=== PATIENT | female | born 1965 | race Caucasian/White ===

== ENCOUNTER 2016-07-25 20:12 | Emergency (ER) | payer SELFPAY ==
--- NOTE | 2016-07-25 20:33 | EDM.PDOC ---
ED HPI GENERAL MEDICAL PROBLEM - General Stated Complaint: ILL X1 MONTH Time Seen by Provider: 07/25/16 20:19 - History of Present Illness INITIAL COMMENTS - FREE TEXT/NARRATIVE: HISTORY AND PHYSICAL: History of present illness: Patient is 50-year-old white female no significant past medical strips of external cold symptoms off and on over the last one month she gets and shortness of breath with this she denies chest pain palpitation diaphoresis she denies tobacco she states she did smoke earlier life but this was an extremely small notches no known lung disease has never used an inhaler prior to no fever chills nausea vomiting or other complaints. Review of systems: As per history of present illness and below otherwise all systems reviewed and negative. Past medical history: As per history of present illness and as reviewed below otherwise noncontributory. Surgical history: As per history of present illness and as reviewed below otherwise noncontributory. Social history: No reported history of drug or alcohol abuse. Family history: As per history of present illness and as reviewed below otherwise noncontributory. Physical exam: HEENT: Atraumatic, normocephalic, pupils reactive, negative for conjunctival pallor or scleral icterus, mucous membranes moist, throat clear, neck supple, nontender, trachea midline. Lungs: Clear to auscultation, breath sounds equal bilaterally, chest nontender. Heart: S1S2, regular, negative for clicks, rubs, or JVD. Abdomen: Soft, nondistended, nontender. Negative for masses or hepatosplenomegaly. Negative for costovertebral tenderness. Pelvis: Stable nontender. Genitourinary: Deferred. Rectal: Deferred. Extremities: Atraumatic, negative for cords or calf pain. Neurovascular unremarkable. Neuro: Awake, alert, oriented. Cranial nerves II through XII unremarkable. Cerebellum unremarkable. Motor and sensory unremarkable throughout. Exam nonfocal. Diagnostics: Chest x-ray influenza screen Therapeutics: None Impression: #1 pneumonitis Definitive disposition and diagnosis as appropriate pending reevaluation and review of above. ED ROS GENERAL - Review of Systems Review Of Systems: ROS reveals no pertinent complaints other than HPI. ED EXAM, GENERAL - Physical Exam Exam: See Below (See dictation) Course - Vital Signs Last Recorded V/S: Last Vital Signs Temp 37.1 C 07/25/16 20:36 Pulse 100 07/25/16 20:36 Resp 16 07/25/16 20:36 BP 178/104 H 07/25/16 20:36 Pulse Ox 99 07/25/16 20:36 - Orders/Labs/Meds Orders: Active Orders 24 hr Category Date Time Status EKG 12 Lead [EKG Documentation Completion] [RC] STAT Care 07/25/16 20:59 Active Chest 2V [CR] Stat Exams 07/25/16 20:32 Taken Labs: Laboratory Tests 07/25/16 07/25/16 07/25/16 Range/Units 21:50 21:50 21:50 WBC 10.33 (4.0-11.0) K/uL RBC 4.50 (4.30-5.90) M/uL Hgb 12.1 (12.0-16.0) g/dL Hct 38.2 (36.0-46.0) % MCV 84.9 (80.0-98.0) fL MCH 26.9 L (27.0-32.0) pg MCHC 31.7 (31.0-37.0) g/dL RDW Std Deviation 44.1 (28.0-62.0) fl RDW Coeff of Carlos 14 (11.0-15.0) % Plt Count 379 (150-400) K/uL MPV 10.70 (7.40-12.00) fL Add Manual Diff YES Neutrophils % (Manual) 61 (48.0-80.0) % Band Neutrophils % 1 % Lymphocytes % (Manual) 28 (16.0-40.0) % Monocytes % (Manual) 6 (0.0-15.0) % Eosinophils % (Manual) 1 (0.0-7.0) % Basophils % (Manual) 3 H (0.0-1.5) % Nucleated RBC % 0.0 /100WBC Absolute Seg Neuts 6.3 Band Neutrophils # 0.1 Lymphocytes # (Manual) 2.9 Monocytes # (Manual) 0.6 Eosinophils # (Manual) 0.1 Basophils # (Manual) 0 Nucleated RBCs # 0 K/uL Sodium 142 (136-146) mmol/L Potassium 4.1 (3.5-5.1) mmol/L Chloride 109 (98-110) mmol/L Carbon Dioxide 26 (21-31) mmol/L BUN 12 (6.0-23.0) mg/dL Creatinine 0.8 (0.6-1.5) mg/dL Est Cr Clr Drug Dosing 75.70 mL/min Estimated GFR (MDRD) > 60.0 ml/min Glucose 84 (60-110) mg/dL Calcium 9.1 (8.8-10.8) mg/dL Total Bilirubin 0.1 (0.1-1.5) mg/dL AST 18 (5-40) IU/L ALT 18 (8-54) IU/L Alkaline Phosphatase 113 (40-150) Creatine Kinase 102 (9-236) IU/L Troponin I < 0.10 (0.0-0.29) NG/ML B-Natriuretic Peptide (<100) PG/ML Total Protein 7.0 (6.0-8.0) g/dL Albumin 3.7 (3.5-5.0) g/dL Globulin 3.3 (2.0-3.5) g/dL Albumin/Globulin Ratio 1.1 L (1.3-2.8) 07/25/16 Range/Units 21:50 WBC (4.0-11.0) K/uL RBC (4.30-5.90) M/uL Hgb (12.0-16.0) g/dL Hct (36.0-46.0) % MCV (80.0-98.0) fL MCH (27.0-32.0) pg MCHC (31.0-37.0) g/dL RDW Std Deviation (28.0-62.0) fl RDW Coeff of Carlos (11.0-15.0) % Plt Count (150-400) K/uL MPV (7.40-12.00) fL Add Manual Diff Neutrophils % (Manual) (48.0-80.0) % Band Neutrophils % % Lymphocytes % (Manual) (16.0-40.0) % Monocytes % (Manual) (0.0-15.0) % Eosinophils % (Manual) (0.0-7.0) % Basophils % (Manual) (0.0-1.5) % Nucleated RBC % /100WBC Absolute Seg Neuts Band Neutrophils # Lymphocytes # (Manual) Monocytes # (Manual) Eosinophils # (Manual) Basophils # (Manual) Nucleated RBCs # K/uL Sodium (136-146) mmol/L Potassium (3.5-5.1) mmol/L Chloride (98-110) mmol/L Carbon Dioxide (21-31) mmol/L BUN (6.0-23.0) mg/dL Creatinine (0.6-1.5) mg/dL Est Cr Clr Drug Dosing mL/min Estimated GFR (MDRD) ml/min Glucose (60-110) mg/dL Calcium (8.8-10.8) mg/dL Total Bilirubin (0.1-1.5) mg/dL AST (5-40) IU/L ALT (8-54) IU/L Alkaline Phosphatase (40-150) Creatine Kinase (9-236) IU/L Troponin I (0.0-0.29) NG/ML B-Natriuretic Peptide 151 H (<100) PG/ML Total Protein (6.0-8.0) g/dL Albumin (3.5-5.0) g/dL Globulin (2.0-3.5) g/dL Albumin/Globulin Ratio (1.3-2.8) Departure - Departure Time of Disposition: 22:32 Disposition: Home, Self-Care 01 Condition: good Clinical Impression: Dyspnea, Hypertension Additional Instructions: The following information is given to patients seen in the emergency department who are being discharged to home. This information is to outline your options for follow-up care. We provide all patients seen in our emergency department with a follow-up referral. The need for follow-up, as well as the timing and circumstances, are variable depending upon the specifics of your emergency department visit. If you don't have a primary care physician on staff, we will provide you with a referral. We always advise you to contact your personal physician following an emergency department visit to inform them of the circumstance of the visit and for follow-up with them and/or the need for any referrals to a consulting specialist. The emergency department will also refer you to a specialist when appropriate. This referral assures that you have the opportunity for followup care with a specialist. All of these measure are taken in an effort to provide you with optimal care, which includes your followup. Under all circumstances we always encourage you to contact your private physician who remains a resource for coordinating your care. When calling for followup care, please make the office aware that this follow-up is from your recent emergency room visit. If for any reason you are refused follow-up, please contact the [facility] emergency department at and asked to speak to the emergency department charge nurse. HUNTER [facility] [address] [place] [id number] Hydrochlorothiazide as prescribed followup clinic above and cardiology as discussed return as needed as discussed - My Orders Last 24 Hours: My Active Orders 07/25/16 20:32 Chest 2V [CR] Stat 07/25/16 20:59 EKG 12 Lead [EKG Documentation Completion] [RC] STAT - Assessment/Plan Last 24 Hours: My Active Orders 07/25/16 20:32 Chest 2V [CR] Stat 07/25/16 20:59 EKG 12 Lead [EKG Documentation Completion] [RC] STAT
[2016-07-25 22:22] LABS: CHLORIDE,CL 109 mmol/L (98-110); SODIUM,NA 142 mmol/L (136-146)
[2016-07-25] MEDS ORDERED: Sodium Chloride 0.9% 1,000 ML IV ONE (22:37)
[2016-07-25] MEDS ORDERED: Iopamidol 755 Mg/ML 100 ML Bottle IVPUSH STA (22:59)
[2016-07-26 00:48] VITALS: BP 182/106
--- NOTE | 2016-07-26 19:17 | CR ---
EXAM DATE: 07/25/16 PATIENT'S AGE: 50 Patient: CONSUELO ZHANG Facility: [place], [place] Site . Site : 1965 Study: XRay Chest [id number]/2/2017 8:40:47 PM Ordering Physician: Alanna Stephenson Final Report: INDICATION: Cough TECHNIQUE: Two view chest. FINDINGS: 2 cm opacity in the lateral right upper lobe, better seen on the lateral view. Some strandy airspace opacity in the anterior right costophrenic angle on the PA. The heart, mediastinum and pulmonary vessels are of normal size. There is no evidence of pleural disease. Probably chronic posterior right 9th rib fracture. Mild diffuse degenerative disk height loss in the thoracic spine. IMPRESSION: Focal pneumonia versus mass lateral right upper lobe. Some atelectasis or pneumonia at the right anterior lower lobe. Imaging followup to resolution recommended. Consider CT for further characterization there is current clinical concern for malignancy. Dictated by Oli Peguero MD @ Jul 25 2016 9:08PM (Electronic Signature) Report Signed by Proxy and Original Signed Document filed in the Medical Record. MILKA
--- NOTE | 2016-07-26 19:39 | CT ---
EXAM DATE: 07/25/16 PATIENT'S AGE: 50 Patient: CONSUELO MURPHY Facility: [place], [place] Site . Site : 1965 Study: CT Chest Angio [id number]/2/2017 11:33:42 PM Ordering Physician: Alanna Stephenson Final Report: INDICATION: Shortness of breath TECHNIQUE: CT chest pulmonary angiogram acquired with i.v. contrast. Coronal and sagittal reformats were obtained. COMPARISON: None FINDINGS: Cardiovascular structures: The pulmonary arteries are unremarkable in appearance with no evidence of acute pulmonary embolism. The heart has an unremarkable appearance and size. No sign of aneurysm or dissection in the thoracic aorta. Mediastinum and anuj: No mass or adenopathy seen. Lungs: Multifocal consolidation is seen in the right lower lobe. In the posterior right upper lobe on image 43, there is a nodule measuring 2.3 cm in diameter. Pleura and pericardium: No pleural effusions are seen. No significant pericardial effusion is present. Chest wall and axilla: No mass or adenopathy seen. Bones: No significant findings. Upper abdomen: Unremarkable. IMPRESSION: 1. No CT evidence of pulmonary embolism seen. 2. Patchy consolidation in the right lower lobe noted, likely due to pneumonia. 3. There is a 2.3 cm diameter nodule in the posterior right upper lobe. While this may represent a focus of rounded pneumonia, the appearance is also concerning for a primary pulmonary neoplasm. Short-term interval followup is recommended and if this lesion persists, further evaluation with biopsy or PET scan is recommended. Dictated by Will Garza MD @ 07/25/2016 11:53:59 PM Dictated by: Will Garza MD @ 07/25/2016 23:54:03 (Electronic Signature) Report Signed by Proxy and Original Signed Document filed in the Medical Record. MILKA
== END 2016-07-26 01:21 | disposition home or self-care (01) ==
LOC: MW.ED 20:12
DX: R91.1 Solitary pulmonary nodule (principal); J18.9 Pneumonia, unspecified organism; I10 Essential (primary) hypertension
CPT/HCPCS: 36415; 71020; 71275; 80053; 82550; 83880; 84484; 85025; 87804; 93005; 96360; 99285; J7040; Q9967; 99284